=== PATIENT | male | born 1945 | race Caucasian/White ===

== ENCOUNTER 2017-04-02 13:40 | Inpatient (IN) | payer MEDICARE, OTHER ==
[~2017-04-02] VITALS: Ht 162.6 cm; Wt 68.0 kg
[~2017-04-02 13:40] MED LIST: ATORVASTATIN; CLARITIN; FLOMAX 0.40.4 MG/CAP PO; PEPCID AC 10MG10 MG PO; PERCOCET 325 MG1 TA2 PO; SINEMET 10/101 UDTAB; SINGULAIR
[2017-04-02 14:09] VITALS: BP 129/65; PULSE 66; TEMP 97.6
[2017-04-02] MEDS ORDERED: SINEMET 10/101 UDTAB (14:16)
[2017-04-02 15:35] VITALS: BP 121/54; PULSE 63; TEMP 98.2
[2017-04-02] MEDS ORDERED: ASPIRIN E.C. 8181 MG PO (17:04)
[2017-04-02] MEDS ORDERED: MIRALAX PA17 GM/Dose PO (17:05)
[2017-04-02] MEDS ORDERED: LIPITOR 80MG80 MG PO (17:05)
[2017-04-02] MEDS ORDERED: PRILOSEC 20MG20 MG PO (17:06)
[2017-04-02] MEDS ORDERED: SINEMET 25/101 UDTAB (17:08)
[2017-04-02 17:14] VITALS: BP 122/55; PULSE 63; TEMP 98
[2017-04-02 17:35] LABS: BASO # 0.1 (0.0-0.2); BASO % 0.4 % (0.0-2.0); EOS # 0.2 (0.0-0.7); EOS % 1.1 % (0-4.0); GRAN # 13.6 (1.4-6.5); GRAN % 87.5 % (42.2-75.2); HEMOGLOBIN 12.5 g/dl (13.5-18.0); LYMPH % 6.1 % (20.0-51.0); MEAN CELL VOLUME 96 fl (80.0-100.0); MEAN CORPUSCULAR HEMOGLOBIN 33 pg (27.0-31.0); MEAN CORPUSCULAR HGB CONC 34 g/dl (33.0-37.0); MEAN PLATELET VOLUME 10.4 fl (7.4-10.4); MONO # 0.7 (0.1-0.6); MONO % 4.4 % (1.7-9.3); PLATELET COUNT 180 K/mm3 (130-400); RED BLOOD COUNT 3.84 M/mm3 (4.20-5.60); WHITE BLOOD COUNT 15.6 K/mm3 (4.8-10.8)
[2017-04-02 17:41] LABS: HEMATOCRIT 36.8 % (42.0-52.0)
[2017-04-02 17:44] LABS: ADJUSTED CALCIUM 9.3 mg/dL (8.4-10.2); ALBUMIN 3.2 gm/dL (3.5-5.0); BILIRUBIN,TOTAL 5.3 mg/dL (0.0-1.0); CALCIUM 8.7 mg/dL (8.4-10.2); CREATININE, serum 1.03 mg/dL (0.66-1.25); TOTAL PROTEIN 6.5 gm/dL (6.4-8.2)
[2017-04-02 21:39] VITALS: BP 120/55; PULSE 69; TEMP 99.1
[2017-04-03] VITALS (8 sets, daily range): BP systolic 118–149; BP diastolic 56–79; PULSE 61–67; TEMP 97.9–98.7
[2017-04-04] VITALS (8 sets, daily range): BP systolic 120–175; BP diastolic 54–91; PULSE 58–116; TEMP 98–98.6
[2017-04-04] MEDS ORDERED: NORCO 325 MG-51 TAB PO (16:26)
== END 2017-04-04 17:20 | disposition home or self-care (01) | DRG 419 ==
LOC: SURG 13:40 → SDCO 13:40 → SURG 14:03 → SDCO 15:00 → SURG 15:00
PROVIDERS: Surgery
PROC: 0FC98ZZ Extirpation of Matter from Common Bile Duct, Via Natural or Artificial Opening Endoscopic (ICD-10-PCS; 2017-04-03)
PROC: 0FT44ZZ Resection of Gallbladder, Percutaneous Endoscopic Approach (ICD-10-PCS; principal; 2017-04-04 11:00)
DX: K80.65 Calculus of gallbladder and bile duct with chronic cholecystitis with obstruction (principal); G20 Parkinson's disease
CPT/HCPCS: OP; C1769; J0360; J0690; J1100; J1170; J2270; J2405; J2543; J2704; J7030; J7050; J7120; Q9967

== ENCOUNTER 2021-04-22 11:15 | Outpatient (RCR) | payer MEDICARE, OTHER ==
[~2021-04-22 11:15] MED LIST changes: +ASPIRIN E.C. 8181 MG PO; +LIPITOR 80MG80 MG PO; +MIRALAX PA17 GM/Dose PO; +MOTRIN 200200 MG/TAB PO; +NORCO 325 MG-51 TAB PO; +PRILOSEC 20MG20 MG PO; +SINEMET 25/101 UDTAB; +UROXATRAL10 M1 PO
== END 2021-04-28 | disposition home or self-care (01) ==
LOC: WSST
DX: R41.3 Other amnesia (principal); G20 Parkinson's disease

== ENCOUNTER 2021-04-29 11:12 | Outpatient (RCR) | payer MEDICARE, OTHER | END 2021-06-05 | disposition home or self-care (01) | LOC: WSST | DX: R41.3 Other amnesia (principal); G20 Parkinson's disease ==

== ENCOUNTER 2021-07-01 11:15 | Outpatient (RCR) | payer MEDICARE, OTHER | END 2021-07-06 | disposition home or self-care (01) | LOC: WSST | DX: R41.841 Cognitive communication deficit (principal); R41.3 Other amnesia; G20 Parkinson's disease ==

== ENCOUNTER 2021-07-29 13:00 | Outpatient (RCR) | payer MEDICARE, OTHER | END 2021-08-03 | disposition home or self-care (01) | LOC: WSST | DX: R41.841 Cognitive communication deficit (principal) ==

== ENCOUNTER 2022-07-21 11:34 | Emergency (ER) | payer MEDICARE, OTHER ==
[~2022-07-21] VITALS: Ht 165.1 cm; Wt 62.7 kg
[2022-07-21 11:55] VITALS: TEMP 97.6
[2022-07-21 15:16] VITALS: BP 164/95; PULSE 64
== END 2022-07-21 15:30 | disposition home or self-care (01) ==
LOC: COL.ER 11:34
DX: S09.90XA Unspecified injury of head, initial encounter (principal); H61.23 Impacted cerumen, bilateral; W18.30XA Fall on same level, unspecified, initial encounter

== ENCOUNTER → 2024-02-11 | Outpatient (CLI) | payer MEDICARE, OTHER ==
[2024-02-11 16:06] LABS: HEMATOCRIT 41.3 % (42.0-52.0); HEMOGLOBIN 14.3 g/dl (13.5-18.0); MEAN CELL VOLUME 97 fl (80.0-100.0); MEAN CORPUSCULAR HEMOGLOBIN 34 pg (27-31); MEAN CORPUSCULAR HGB CONC 35 g/dl (33.0-37.0); MEAN PLATELET VOLUME 10.3 fl (7.4-10.4); PLATELET COUNT 224 K/mm3 (130-400); RED BLOOD COUNT 4.26 M/mm3 (4.20-5.60); REDCELL DISTRIBUTION WIDTH-CV 13.1 % (11.5-14.5)
[2024-02-11 16:18] LABS: ALBUMIN 3.9 g/dL (3.4-4.8); BILIRUBIN,TOTAL 0.8 mg/dL (0.2-1.2); CALCIUM 9.3 mg/dL (8.4-10.2); CREATININE, serum 0.95 mg/dL (0.72-1.25); POTASSIUM 4.4 mEq/L (3.5-4.5); TOTAL PROTEIN 7.2 g/dl (6.2-8.1)
== END ==
LOC: ZCOL.LAB 15:56
PROVIDERS: Internal Medicine
DX: M62.81 Muscle weakness (generalized) (principal)